=== PATIENT | female | born 1975 | race Caucasian/White ===

== ENCOUNTER → 2023-09-12 10:39 | Outpatient (REF) | payer BC, SELFPAY | LOC: WDC 10:39 | PROVIDERS: ATTENDING PHYSICIAN Family Medicine | DX: Z12.31 Encounter for screening mammogram for malignant neoplasm of breast (principal) | CPT/HCPCS: 77063; 77067 ==

== ENCOUNTER → 2025-04-04 07:39 | Outpatient (REF) | payer BC, SELFPAY | LOC: RAD 07:39 | PROVIDERS: ATTENDING PHYSICIAN Physician Assistant Medical | DX: M22.2X1 Patellofemoral disorders, right knee (principal) | CPT/HCPCS: 73560 ==